=== PATIENT | female | born 1955 | race Caucasian/White ===

== ENCOUNTER 2021-04-02 13:11 | Emergency (ER) | payer MEDICARE, SELFPAY ==
[2021-04-02] MEDS ORDERED: Acetaminophen 500 MG TAB ONE (13:20)
== END 2021-04-02 15:30 | disposition home or self-care (01) ==
LOC: NAV ERS 13:11
DX: R05 Cough (principal); R19.7 Diarrhea, unspecified; M79.10 Myalgia, unspecified site; R53.83 Other fatigue; Z20.822 Contact with and (suspected) exposure to COVID-19; E11.9 Type 2 diabetes mellitus without complications; E78.5 Hyperlipidemia, unspecified; E78.00 Pure hypercholesterolemia, unspecified; I10 Essential (primary) hypertension; Z79.899 Other long term (current) drug therapy; Z79.84 Long term (current) use of oral hypoglycemic drugs
CPT/HCPCS: 71045

== ENCOUNTER 2021-07-18 17:02 | Emergency (ER) | payer MEDICARE | END 2021-07-18 17:32 | disposition home or self-care (01) | LOC: NAV ERS 17:02 | DX: S86.912A Strain of unspecified muscle(s) and tendon(s) at lower leg level, left leg, initial encounter (principal); I10 Essential (primary) hypertension; E11.9 Type 2 diabetes mellitus without complications; E78.5 Hyperlipidemia, unspecified; E78.00 Pure hypercholesterolemia, unspecified; Z79.84 Long term (current) use of oral hypoglycemic drugs; Z79.899 Other long term (current) drug therapy | CPT/HCPCS: 99283 ==

== ENCOUNTER 2022-09-30 11:51 | Emergency (ER) | payer MEDICARE, OTHER ==
[2022-09-30] MEDS ORDERED: methylPREDNISolone Acetate 40 mg/ml Vial ONE (12:48)
== END 2022-09-30 13:13 | disposition home or self-care (01) ==
LOC: NAV ERS 11:51
DX: L30.8 Other specified dermatitis (principal); E11.9 Type 2 diabetes mellitus without complications; E78.00 Pure hypercholesterolemia, unspecified; I10 Essential (primary) hypertension; Z79.84 Long term (current) use of oral hypoglycemic drugs; Z79.899 Other long term (current) drug therapy
CPT/HCPCS: 96372; 99282; J1030

== ENCOUNTER 2022-11-10 10:19 | Emergency (ER) | payer OTHER ==
[2022-11-10] MEDS ORDERED: methylPREDNISolone Acetate 40 mg/ml Vial ONE (10:58)
== END 2022-11-10 11:20 | disposition home or self-care (01) ==
LOC: NAV ERS 10:19
DX: T78.40XA Allergy, unspecified, initial encounter (principal); E78.00 Pure hypercholesterolemia, unspecified; I10 Essential (primary) hypertension; Z79.899 Other long term (current) drug therapy; E11.9 Type 2 diabetes mellitus without complications; Z79.84 Long term (current) use of oral hypoglycemic drugs
CPT/HCPCS: 96372; 99282; J1030

== ENCOUNTER 2024-01-14 20:05 | Emergency (ER) | payer OTHER ==
[2024-01-14] MEDS ORDERED: Amoxicillin/Potassium Clav 875 MG TAB ONE (20:51)
[2024-01-14] MEDS ORDERED: Lidocaine 1% (PF) 30 ML VIAL ONE (20:51)
[2024-01-14] MEDS ORDERED: Ibuprofen 800 MG TAB ONE (20:51)
== END 2024-01-14 21:15 | disposition home or self-care (01) ==
LOC: NAV ERS 20:05
DX: K02.9 Dental caries, unspecified (principal); R68.84 Jaw pain; E11.40 Type 2 diabetes mellitus with diabetic neuropathy, unspecified; K21.9 Gastro-esophageal reflux disease without esophagitis; E78.00 Pure hypercholesterolemia, unspecified; I10 Essential (primary) hypertension; Z79.84 Long term (current) use of oral hypoglycemic drugs; Z79.899 Other long term (current) drug therapy
CPT/HCPCS: 64400; J2001

== ENCOUNTER 2024-04-13 10:39 | Emergency (ER) | payer OTHER, MEDICAID | END 2024-04-13 12:30 | disposition home or self-care (01) | LOC: NAV ERS 10:39 | DX: S20.212A Contusion of left front wall of thorax, initial encounter (principal); I10 Essential (primary) hypertension; E78.00 Pure hypercholesterolemia, unspecified; E11.40 Type 2 diabetes mellitus with diabetic neuropathy, unspecified; K21.9 Gastro-esophageal reflux disease without esophagitis; Z79.899 Other long term (current) drug therapy; V49.50XA Passenger injured in collision with unspecified motor vehicles in traffic accident, initial encounter; Z79.84 Long term (current) use of oral hypoglycemic drugs | CPT/HCPCS: 72125 ==

== ENCOUNTER 2024-04-28 14:43 | Emergency (ER) | payer OTHER, MEDICAID ==
[2024-04-28] MEDS ORDERED: Boostrix 0.5 ML (Tdap) VIAL (>/=7 yrs of age) ONE (15:09)
== END 2024-04-28 15:28 | disposition home or self-care (01) ==
LOC: NAV ERS 14:43
DX: S50.811A Abrasion of right forearm, initial encounter (principal); E11.9 Type 2 diabetes mellitus without complications; K21.9 Gastro-esophageal reflux disease without esophagitis; I10 Essential (primary) hypertension; E78.00 Pure hypercholesterolemia, unspecified; Z79.899 Other long term (current) drug therapy; Z79.84 Long term (current) use of oral hypoglycemic drugs; W54.8XXA Other contact with dog, initial encounter
CPT/HCPCS: 90471; 90715

== ENCOUNTER 2025-04-13 15:56 | Emergency (ER) | payer OTHER, MEDICAID | END 2025-04-13 16:56 | disposition home or self-care (01) | LOC: NAV ERS 15:56 | DX: R21 Rash and other nonspecific skin eruption (principal); E11.9 Type 2 diabetes mellitus without complications; I10 Essential (primary) hypertension; E78.00 Pure hypercholesterolemia, unspecified; Z79.84 Long term (current) use of oral hypoglycemic drugs; Z79.899 Other long term (current) drug therapy | CPT/HCPCS: 99282 ==